=== PATIENT | female | born 1965 | race Caucasian/White ===

== ENCOUNTER 2018-01-05 08:34 | Day surgery (SDC) | payer OTHER ==
[2018-01-05 09:05] VITALS: TEMP 97.8
[2018-01-05] MEDS ORDERED: PROPOFOL 20 ML ONE ×2 (09:05)
[2018-01-05 10:50] VITALS: BP 97/56; PULSE 53
== END 2018-01-05 10:45 | disposition home or self-care (01) ==
LOC: FASU-ENDO 08:34
PROVIDERS: ATTEND Internal Medicine Gastroenterology
PROC: 0DJD8ZZ Inspection of Lower Intestinal Tract, Via Natural or Artificial Opening Endoscopic (ICD-10-PCS; principal; 2018-01-05 09:51)
DX: Z12.11 Encounter for screening for malignant neoplasm of colon (principal); Z83.71 Family history of colonic polyps